=== PATIENT | male | born 1975 | race Two or more races ===

== ENCOUNTER 2022-03-21 15:05 | Emergency (ER) | payer MEDICAID ==
[~2022-03-21] VITALS: Ht 172.7 cm; Wt 83.9 kg
[2022-03-21 15:05] VITALS: BP 127/70
[2022-03-21] MEDS ORDERED: IBUPROFEN 600 MG TAB PO ONE (16:05)
[2022-03-21] MEDS ORDERED: ACETAMINOPHEN EXTRA STRENGTH 500 MG TAB PO ONE (16:05)
[2022-03-21 16:41] VITALS: BP 144/70
--- NOTE | 2022-03-21 16:45 | NUR ---
PATIENT BIB [place] [employer]. PATIENT EXAMINED BY . PATIENT MEDICALLY CLEARED AND RELEASED IN CUSTODY IN STABLE CONDITION. ORIGINAL PRE-BOOK FORM GIVEN TO OFFICER BETSY.
== END 2022-03-21 16:30 ==
LOC: MED 15:05
DX: S60.512A Abrasion of left hand, initial encounter (principal); S60.511A Abrasion of right hand, initial encounter; I10 Essential (primary) hypertension; Z79.899 Other long term (current) drug therapy; Y04.8XXA Assault by other bodily force, initial encounter; Y93.89 Activity, other specified; Y92.89 Other specified places as the place of occurrence of the external cause; Y99.8 Other external cause status
CPT/HCPCS: 99283

== ENCOUNTER 2023-12-22 09:50 | Emergency (ER) | payer MEDICAID ==
[~2023-12-22] VITALS: Ht 172.7 cm; Wt 85.7 kg
[2023-12-22 10:01] VITALS: BP 105/73; PULSE 87; RESP 18; TEMP 98.3; O2SAT 98
== END 2023-12-22 11:05 ==
LOC: MED 09:50
DX: M25.532 Pain in left wrist (principal); M79.632 Pain in left forearm; F10.10 Alcohol abuse, uncomplicated; F17.210 Nicotine dependence, cigarettes, uncomplicated; F15.90 Other stimulant use, unspecified, uncomplicated; I10 Essential (primary) hypertension; J45.909 Unspecified asthma, uncomplicated; Z86.69 Personal history of other diseases of the nervous system and sense organs; Y90.9 Presence of alcohol in blood, level not specified
CPT/HCPCS: 73090; 73110; 99284